=== PATIENT | female | born 2000 | race Caucasian/White ===

== ENCOUNTER 2021-09-22 20:45 | Inpatient (IN) ==
[2021-09-22] MEDS ORDERED: OXYTOCIN 30 UNITS/500 ML BAG IV PRN (21:05)
[2021-09-22] MEDS: LACTATED RINGER'S 1,000 ML IV PRN (21:13)
[2021-09-22] MEDS ORDERED: PENICILLIN G POTASSIUM 6 MU in DEXTROSE 5% 250 ML IV SCH (21:15)
[2021-09-22 21:26] LABS: Hematocrit (blood only) 38.4 % (37-47); Mean Corpuscular Hemoglobin 31.9 pg (25-34); Mean Corpuscular Hgb Conc 33.9 g/dL (32-36); Mean Corpuscular Volume 94.1 fL (80-100); Mean Platelet Volume 9.3 fL (7.4-10.4); Platelet Count 348 K/uL (130-400); RDW Coefficient of Variation 13.8 % (11.5-14.5); RDW Standard Deviation 47.4 fL (36.4-46.3); Red Blood Count 4.08 M/uL (4.2-5.4); White Blood Count 16.39 K/uL (4.8-10.8)
[2021-09-22] MEDS ORDERED: fentaNYL citrate 100 MCG/2 ML VIAL ONE (21:36)
[2021-09-22] MEDS ORDERED: BUPIVACAINE 0.25% 30 ML VIAL ONE (21:36)
[2021-09-22] MEDS ORDERED: SODIUM CHLORIDE 0.9% INJ 10 ML VIAL ONE (21:36)
[2021-09-22] MEDS ORDERED: ePHEDrine sulfate 50 MG/ML AMP ONE (21:36)
[2021-09-22] MEDS ORDERED: fentaNYL 2MCG/ML ROPIVACAINE 1.25MG/ML 100 ML BAG EPI ONE (21:37)
[2021-09-22] MEDS ORDERED: NALBUPHINE HCL INJ 10 MG/ML AMP IV PRN (21:45)
[2021-09-22] MEDS ORDERED: diphenhydrAMINE 50 MG/ML VIAL IV PRN (21:45)
[2021-09-22] MEDS ORDERED: NALOXONE HCL 1 MG in SODIUM CHLORIDE 0.9% 1000ML 1,000 ML IV PRN (21:45)
[2021-09-22] MEDS ORDERED: fentaNYL 2MCG/ML ROPIVACAINE 1.25MG/ML 100 ML BAG EPI PRN (21:45)
[2021-09-22] MEDS ORDERED: ePHEDrine sulfate 50 MG/ML AMP IV PRN (21:45)
[2021-09-22] MEDS ORDERED: NALOXONE HCL 0.4 MG/1 ML VIAL/CARP IV PRN (21:45)
--- NOTE | 2021-09-22 21:45 | Anesthesiology Consultation ---
Date of Service September 22, 2021 Assessment & Plan (1) Encounter for pre-operative examination: Chart Review Chart Review: Acceptable Risk for Surgery and Patient NOT seen in Pre Admission Testing Consults Requested none History Height/Weight Height: 5 ft 5 in Weight: 80.739 kg Allergies Allergy/AdvReac Type Severity Reaction Status Date / Time No Known Allergies Allergy Verified 09/21/21 06:01 Medications Home Medications Medication Instructions Recorded Confirmed Last Taken ferrous sulfate 325 mg (65 mg 325 mg PO DAILY 09/21/21 09/22/21 09/21/21 iron) tablet (iron) prenat.vits,amanda,rrp-mjnn-hxbzh 1 tab PO DAILY 09/21/21 09/22/21 09/22/21 Active Medications Generic Name Dose Route Start Last Admin Trade Name Freq PRN Reason Stop Dose Admin Lactated Ringer's 1,000 mls @ 125 mls/hr 09/22/21 21:05 09/22/21 21:42 Lr IV 09/24/21 21:04 125 mls/hr .Q8H PRN Infusion L&D Protocol Protocol Past Medical History Medical History Anxiety Depression patient has medical marijuana card Social History Smoking Status: Current every day smoker tobacco type: cigarettes Smoking cigarettes per day: 4 Hx Alcohol Use: No Hx Substance Use: Yes substance use type: marijuana Substance Use Type Other:: has medical card Last Used Substance: Days (ago) Last Used Substance Other:: 1 day ago Physical Exam Vital Signs Last Vital Signs Temp 98.4 F 09/22/21 20:49 Pulse 96 H 09/22/21 20:49 Resp 20 09/22/21 20:49 BP 137/89 09/22/21 20:49 Testing Laboratory Results 09/22/21 21:18
[2021-09-23] MEDS ORDERED: PENICILLIN G POTASSIUM 3 MU in DEXTROSE 5% 100 ML IV PRN (00:05)
[2021-09-23] MEDS: LACTATED RINGER'S 1,000 ML IV PRN (01:45)
[2021-09-23] MEDS ORDERED: ONDANSETRON INJ 2 MG/ML 2 ML VIAL IV PRN (07:21)
[2021-09-23] MEDS ORDERED: METHYLERGONOVINE MALEATE 0.2 MG/ML AMP ONE (09:01)
[2021-09-23] MEDS ORDERED: miSOPROStoL 200 MCG TAB ONE (09:13)
[2021-09-23] MEDS ORDERED: ACETAMINOPHEN 325 MG TAB PO PRN (09:26)
[2021-09-23] MEDS ORDERED: DIPHTHERIA/TETANUS/PERTUSSIS 0.5 ML SYR/VIAL IM ONE (09:26)
[2021-09-23] MEDS ORDERED: miSOPROStoL 200 MCG TAB PR ONE (09:26)
[2021-09-23] MEDS ORDERED: METHYLERGONOVINE MALEATE 0.2 MG/ML AMP IM ONE (09:26)
[2021-09-23] MEDS ORDERED: bisacodyL 10 MG SUPP PR PRN (09:26)
[2021-09-23] MEDS ORDERED: BENZOCAINE 20% AER SPR 82.5 GM CAN EXT PRN (09:26)
[2021-09-23] MEDS ORDERED: HYDROCORTISONE ACETATE 25 MG SUPP PR PRN (09:26)
[2021-09-23] MEDS ORDERED: OXYTOCIN 30 UNITS/500 ML BAG IV PRN (09:26)
--- NOTE | 2021-09-23 10:30 | Delivery Summary ---
DATE OF PROCEDURE: 09/23/2021 The patient delivered a live infant female in left occiput anterior presentation. There were 2 nucha l cords, which were easily reduced. Cord was clamped and cut. Infant was delivered and handed over to the waiting pediatric team. Infant's weight and Apgars in the pediatric record. Cord blood and c ord gases were obtained. Placenta was spontaneously delivered. Inspection of the perineum showed 2 lateral lacerations on both labia. These were repaired with 3-0 Vicryl. There was good hemostasis post repair. Rectal exam post repair shows no sutures in the rect um. Rectum was intact. All instruments were removed from the vagina and accounted for x2 including sponges, needles, and ret ractors. Baby and mother are doing well and stable to recovery. Job ID: [id number]
[2021-09-23] MEDS ORDERED: METHYLERGONOVINE MALEATE 0.2 MG/ML AMP IM STA (11:19)
[2021-09-23] MEDS: IBUPROFEN 600 MG TAB PO PRN ×2 (11:30→19:47)
[2021-09-23] MEDS ORDERED: OXYTOCIN 20 UNITS in LACTATED RINGER'S 1,000 ML IV SCH (11:30)
[2021-09-23 12:43] LABS: Base Excess Cord Arterial Bld -2.7 mEq/L (-9-1.8); CO2 Cord Arterial Blood 44 mmHg (39.1-73.5); HCO3 Cord Arterial Blood 23 mmol/L (19.7-28.5); PO2 Cord Arterial Blood 26 mmHg (4.1-31.7); pH Cord Arterial Blood 7.34 (7.1-7.38)
[2021-09-23 12:46] LABS: Base Excess Cord Venous Blood -3.8 mEq/L (-7.7-1.9); Cord Venous Blood HCO3 21 mmol/L (18.4-26.8); Cord Venous Blood PCO2 36 mmHg (30.4-57.2); Cord Venous Blood PO2 34 mmHg (14.1-43.3); Cord Venous Blood pH 7.38 (7.20-7.44)
--- NOTE | 2021-09-23 14:49 | Anesthesia Procedure Note ---
Date of Service September 23, 2021 Anesthesia Post Epidural Note Vital Signs Vital Signs: Temp Pulse Resp BP Pulse Ox 36.8 C 87 20 127/75 97 09/23/21 07:02 09/23/21 14:31 09/23/21 07:58 09/23/21 14:31 09/23/21 09:09 Pain Intensity Bilateral Abdomen: Pain Intensity: 0 Notes Mental Status: alert / awake / arousable and participated in evaluation Nausea / Vomiting: adequately controlled Pain: adequately controlled Airway Patency, RR, SpO2: stable & adequate BP & HR: stable & adequate Hydration State: stable & adequate Neuraxial Anesthesia: was administered and sensory block is resolving Anesthetic Complications: no major complications apparent and Pt Satisfied with anesthetic care Epidural: Removed without complications and With tip intact
[2021-09-23] MEDS: DOCUSATE SODIUM 100 MG CAP PO SCH (21:10)
[2021-09-24] MEDS: IBUPROFEN 600 MG TAB PO PRN ×2 (02:47→08:34)
[2021-09-24 06:48] LABS: Hematocrit (blood only) 32.2 % (37-47); Hemoglobin 10.8 g/dL (12.0-16.0); Mean Corpuscular Hemoglobin 32.1 pg (25-34); Mean Corpuscular Hgb Conc 33.5 g/dL (32-36); Mean Corpuscular Volume 95.8 fL (80-100); Mean Platelet Volume 9.4 fL (7.4-10.4); Platelet Count 285 K/uL (130-400); RDW Coefficient of Variation 13.9 % (11.5-14.5); RDW Standard Deviation 48.6 fL (36.4-46.3); Red Blood Count 3.36 M/uL (4.2-5.4); White Blood Count 23.55 K/uL (4.8-10.8)
[2021-09-24] MEDS ORDERED: FERROUS SULFATE 325 MG TAB PO SCH (08:00)
[2021-09-24] MEDS ORDERED: PRENATAL VITAMIN 1 TAB PO SCH (08:00)
[2021-09-24] MEDS: DOCUSATE SODIUM 100 MG CAP PO SCH (08:34)
--- NOTE | 2021-09-24 09:46 | Obstetrical Progress Note ---
Date of Service September 24, 2021 Subjective Ambulation: ambulating normally Voiding: no voiding problems Passing Gas:: Yes Diet Tolerance:: regular diet Lochia:: Small Feeding Type:: breast feeding Current Pain Level(1-10): 0 doing well Physical Exam Constitutional WD/WN, vitals as above comfortable abdomen soft and non-tender no edema neg Gricel's for d/c home Results & Data ([facility]) Vital Signs (Past 12 Hours) Vital Signs Temp Pulse Resp BP Pulse Ox 09/24/21 08:30 36.5 C 87 18 126/83 09/24/21 03:00 36.6 C 80 16 130/83 99 09/23/21 23:00 36.8 C 81 16 113/75 98 Laboratory Results Laboratory Results - last 48 hr 09/22/21 09/22/21 09/23/21 21:00 21:18 08:56 WBC 16.39 H RBC 4.08 L Hgb 13.0 Hct 38.4 MCV 94.1 MCH 31.9 MCHC 33.9 RDW Std Deviation 47.4 H RDW Coeff of Dinora 13.8 Plt Count 348 MPV 9.3 Cord ABG pH Cord ABG pCO2 Cord ABG pO2 Cord ABG HCO3 Cord ABG Base Excess Cord ABG O2 Sat Cord VBG pH 7.38 Cord VBG pCO2 36 Cord VBG pO2 34 Cord VBG HCO3 21 Cord VBG Base Excess -3.8 Cord VBG O2 Sat 75.0 H Barometric Pressure 733.9 Blood Gas Comments A SARS-CoV-2, RNA, NAAT NEGATIVE 09/23/21 09/24/21 08:56 06:14 WBC 23.55 H RBC 3.36 L Hgb 10.8 L Hct 32.2 L MCV 95.8 MCH 32.1 MCHC 33.5 RDW Std Deviation 48.6 H RDW Coeff of Dinora 13.9 Plt Count 285 MPV 9.4 Cord ABG pH 7.34 Cord ABG pCO2 44 Cord ABG pO2 26 Cord ABG HCO3 23 Cord ABG Base Excess -2.7 Cord ABG O2 Sat 61.0 H Cord VBG pH Cord VBG pCO2 Cord VBG pO2 Cord VBG HCO3 Cord VBG Base Excess Cord VBG O2 Sat Barometric Pressure 733.9 Blood Gas Comments CARREON SARS-CoV-2, RNA, NAAT
[2021-09-24] MEDS ORDERED: bisacodyL 5 MG TABEC PO SCH (20:00)
== END 2021-09-24 12:30 | disposition home or self-care (01) | DRG 807 ==
LOC: OPB 20:45 → 4S1 20:46 → 4S2 09-23 15:15